=== PATIENT | male | born 1970 | race Caucasian/White ===

== ENCOUNTER 2021-08-06 13:10 | Emergency (ER) | payer OTHER, SELFPAY ==
[2021-08-06 13:13] VITALS: BP 130/87; PULSE 81; RESP 16; TEMP 36.8; O2SAT 96; BMI 21.9
--- NOTE | 2021-08-06 14:17 | W.ED.DENTAL ---
HPI - Dental/Oral General: Chief complaint: Dental/Oral Stated complaint: Tooth pain Time Seen by Provider: 08/06/21 13:19 History of Present Illness: Patient has a broken molar on left upper side x1 month started hurt the last couple days. Associated symptoms: Denies fever(s) Review of Systems Const: Denies: fever(s) or chills ENMT: Reports: dental pain and other (Broken tooth with pain now times couple days) Psych: Denies: depression Physical Exam Const: COMMON NORMALS: no acute distress HENMT: MOUTH: other (No trismus) TEETH & GINGIVA IMAGES: 1. Broken tooth with slight redness around it. Lymph: LYMPHATIC: no lymphadenopathy noted Psych: COMMON NORMALS: mental status grossly normal Course Vital Signs: Vital signs: Vital Signs Temperature 98.3 F 08/06/21 13:13 Pulse Rate 81 08/06/21 13:13 Respiratory Rate 16 08/06/21 13:13 Blood Pressure 130/87 08/06/21 13:13 Pulse Oximetry 96 08/06/21 13:13 MDM - Dental/Oral Medical Decision Making Broken tooth, medication provided, needs get into dentist soon. Discharge Plan Discharge Patient Disposition: Home Clinical Impression: Toothache Condition: Stable Prescriptions: New clindamycin HCl 300 mg capsule 300 mg PO Q8H 7 Days Qty: 21 0RF Celebrex 100 mg capsule 100 mg PO BID Qty: 20 0RF Discharge Orders: Discharge ED (Routine); Ordered 08/06/21 Ordered By: Ayaan Tovar Discharge Diet: Usual diet Discharge Activity: Resume usual activity Activity Restrictions/Additional Instructions: Take medication as directed. Follow-up with dentist as soon as possible. 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
== END 2021-08-06 14:25 | disposition home or self-care (01) ==
PROVIDERS: Emergency Provider Nurse Practitioner Family
DX: K08.89 Other specified disorders of teeth and supporting structures (principal)
CPT/HCPCS: 99282

== ENCOUNTER 2023-05-04 14:24 | Emergency (ER) | payer OTHER, SELFPAY ==
[2023-05-04 14:28] VITALS: BP 158/62; PULSE 94; RESP 16; TEMP 36.8; O2SAT 98
--- NOTE | 2023-05-04 14:29 | ED_ITS ---
HPI - Dental/Oral 2 General: Chief complaint: Dental/Oral Stated complaint: tooth pain Time Seen by Provider: 05/04/23 14:25 Source: patient Mode of arrival: ambulatory Limitations: no limitations History of Present Illness: Patient is 53-year-old female presents to ED today with a complaint of a cracked left bottom molar with associated pain and some swelling. Patient states he has a dentist appointment scheduled in 2 weeks but is mainly here to be placed on antibiotics prior to this appointment. He has not had any fever. No neck swelling. Patient is eating, drinking, articulating, and controlling secretions normally. MD Complaint: tooth pain Teeth map: 1. Onset (ago): day(s) Duration: constant Severity: moderate Relieving factors: nothing Exacerbating factors: chewing Context: history of dental caries and poor dental care Associated symptoms: Reports no associated symptoms; Denies fever(s) or odynophagia Treatment prior to arrival: none Review of Systems 2 Const: Denies: fever(s), chills, body aches, fatigue or malaise ENMT: Reports: dental pain; Denies: throat pain, odynophagia, hoarseness, mouth pain, swelling of lips/tongue, oral sores, bleeding gums, nasal discharge or nasal congestion Card: Denies: chest pain Resp: Denies: dyspnea GI: Denies: nausea or vomiting Musc: Denies: neck pain Neuro: Denies: headache(s) Physical Exam 2 Const: COMMON NORMALS: no acute distress, average body habitus, patient oriented x3, no limitations, alert and well nourished HENMT: COMMON NORMALS: normocephalic and atraumatic HEAD & SCALP: normal to inspection, normocephalic and atraumatic FACE & SINUS: normal facial exam, sinuses nontender and face symmetric MOUTH: Normal oral and palatal mucosa present and lip normal TEETH & GINGIVA: Yes caries and Yes poor dentition TEETH & GINGIVA IMAGES: 1. broken/decayed molar THROAT: posterior oropharynx normal and tonsils normal Neck/C-Spine: GENERAL: No anterior neck swelling and No submandibular swelling Neuro: COMMON NORMALS: patient oriented x3 SENSORIUM/ORIENTATION: Yes alert Course 2 Vital Signs: Vital signs: Vital Signs Temperature 98.2 F 05/04/23 14:28 Pulse Rate 94 05/04/23 14:28 Respiratory Rate 16 05/04/23 14:28 Blood Pressure 158/62 05/04/23 14:28 Pulse Oximetry 98 05/04/23 14:28 MDM - Dental/Oral Medical Decision Making Patient will be placed on antibiotics. Recommend follow-up with dentist as scheduled. Return ED precautions given. Differential Diagnosis Likely dental caries, toothache, dental abscess and fracture of tooth No radiology studies performed this visit Discharge Plan Discharge Patient Disposition: Home Clinical Impression: Toothache Fracture of tooth Qualifiers: Encounter type: initial encounter Fracture type: closed Qualified Code(s): S 02.5XXA - Fracture of tooth (traumatic), initial encounter for closed fracture Condition: Stable Prescriptions: New penicillin V potassium 500 mg tablet 500 mg PO Q8H 7 Days Qty: 21 0RF No Action Celebrex 100 mg capsule 100 mg PO BID Qty: 20 0RF Discharge Orders: Discharge ED (Routine); Ordered 05/04/23 Ordered By: Alem Garcia Patient Instructions: Toothache (ED) Coding 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
== END 2023-05-04 15:02 | disposition home or self-care (01) ==
PROVIDERS: Emergency Provider Physician Assistant
DX: S02.5XXA Fracture of tooth (traumatic), initial encounter for closed fracture (principal); X58.XXXA Exposure to other specified factors, initial encounter
CPT/HCPCS: 99283